=== PATIENT | female | born 1970 | race Caucasian/White ===

== ENCOUNTER 2016-05-11 11:05 | Day surgery (SDC) | payer BC ==
[2016-05-10 11:13] LABS: HEMATOCRIT 38.6 % (36.0-48.0); HEMOGLOBIN 12.1 g/dL (12.0-16.0)
[2016-05-10 11:28] LABS: A/G RATIO 1.1 (0.7-1.9); ALBUMIN 3.8 G/DL (3.5-5.0); ALKALINE PHOSPHATASE 59 U/L (45-117); BUN (BLOOD UREA NITROGEN) 14 MG/DL (6-23); CALCIUM, SERUM 8.9 MG/DL (8.5-10.4); CHLORIDE, SERUM 107 MMOL/L (96-112); CO2 (CARBON DIOXIDE) 27 MMOL/L (24-34); CREATININE 0.76 MG/DL (0.55-1.02); GFR AFRICAN AMERICAN 109 ML/MIN (>=60); GFR NON AFRICAN AMERICAN 94 ML/MIN (>=60); GLOBULIN 3.4 G/DL (2.5-4.1); POTASSIUM, SERUM 4.2 MMOL/L (3.5-5.3); SGOT(AST) 19 U/L (5-40); SGPT(ALT) 29 U/L (5-65); SODIUM, SERUM 142 MMOL/L (135-148); TOTAL BILIRUBIN 0.4 MG/DL (0-1.2); TOTAL PROTEIN 7.2 G/DL (6.0-8.5)
[2016-05-10 11:31] LABS: GLUCOSE, SERUM 62 MG/DL (60-99)
--- NOTE | ~2016-05-11 | OP ---
Record Of Operation [facility] [address] [place]. [address] NAME: MEG ROBERTO : 70 STATUS : REG [facility] [place] PAT#: [id number] AGE: 46 ADM/REG DATE : 05/11/16 MR#: [id number] REPORT SERV DATE: 05/11/16 DICTATED BY: VINCENT PIEDRA DATE: 05/11/16 REPORT STATUS : Draft TRANSCRIBED BY: MODL DATE: 05/11/16 DATE OF PROCEDURE: 05/11/2016 PREOPERATIVE DIAGNOSES: 1. Incarcerated supraumbilical incisional hernia. 2. Hyperlipidemia. POSTOPERATIVE DIAGNOSES: 1. Incarcerated supraumbilical incisional hernia. 2. Hyperlipidemia. PROCEDURE: Robotic incarcerated supraumbilical incisional hernia repair with mesh (FREYA). ANESTHESIA: General. SURGEON: Vincent Piedra M.D. SENIOR CHEMICAL ENGINEER: Dmitriy. COMPLICATIONS: None. DRAINS: None. ESTIMATED BLOOD LOSS: 20 mL. FINDINGS: The patient noted to have a supraumbilical hernia, with a large amount of incarcerated preperitoneal fat, with a 15 mm circular defect above the umbilicus most likely from a previous trocar site. OPERATIVE TECHNIQUE: The patient was brought to the operating room and placed on the table in supine position. She had preoperative IV antibiotics. She had sequential hose in place. She voided prior to the procedure. She underwent general endotracheal anesthesia, and was prepped and draped in sterile fashion, and a time-out was completed. Local anesthesia was instilled through the right subcostal space in the midclavicular line. A 15 blade knife was used to make an incision and the Veress needle was inserted, and water drop test was safely performed. A 15 mm of pneumoperitoneum was obtained. An 8 mm robotic trocar was inserted followed by the laparoscope. There was no evidence of Veress or trocar injury. The patient had an 8 mm midclavicular left lower quadrant trocar placed under direct visualization, as well as a five right lateral mid and left upper quadrant 12 mm trocar. They were all put under direct visualization. The patient was then positioned with hyperextension to elongate the abdomen. She was placed to the right side of her abdomen. At this point, the patient's cart was brought to the bedside and trocars were docked, the camera was inserted, and the patient was noted to have of the hernia with a large amount of incarcerated preperitoneal fat. The decision was made to proceed robotically, the #1 right arm was used for the scissor and a bipolar grasper was used in the left hand. A peritoneal flap was taken down from the left midclavicular line to the right midclavicular line, around the defect which Record Of Operation [address] [place]. [address] NAME: MEG ROBERTO : 70 STATUS : REG [facility] [place] PAT#: [id number] AGE: 46 ADM/REG DATE : 05/11/16 MR#: [id number] REPORT SERV DATE: 05/11/16 DICTATED BY: VINCENT PIEDRA DATE: 05/11/16 REPORT STATUS : Draft TRANSCRIBED BY: BENIGNO DATE: 05/11/16 was left in situ. The entire incarcerated hernia contents were then reduced en mass along with the hernia sac. The defect was then closed with the pneumoperitoneum reduced to 8 mm with a 1-0 V-Loc suture in running fashion that was run back upon itself for approximately 1 cm cephalad and caudal to the defect, it was closed in a longitudinal fashion. At this point, the measurements were obtained, and a piece of Prolene mesh was cut, 8 mm in length, and 5 cm and width, it was placed in the preperitoneal space, and secured circumferentially to the abdominal wall with 2-0 V-Loc suture. The peritoneum was then re-peritonealized without tension with a 3-0 V-Loc suture. At this point, there was no evidence of any other hernias or abnormalities. The patient had the 12 mm trocar sites closed with the suture passer under direct laparoscopic visualization, after the robotic patient cart was docked and instruments were removed. At this point, there was no evidence of other abnormalities. The skin edges were reapproximated using interrupted subcuticular Monocryl sutures. Dermabond was applied. She was extubated and taken to the recovery room in stable condition. All sponge and needle counts reported correct. ANETA/BENIGNO Vincent Piedra M.D. / [id number] CC: Nel Jackson M.D.
[~2016-05-11 11:05] MED LIST: ADVIL PO; CALTRA600D PO; ZOL100 PO
== END 2016-05-11 18:02 | disposition home or self-care (01) ==
LOC: SDC 11:05
PROVIDERS: Surgery
PROC: 0WUF4JZ Supplement Abdominal Wall with Synthetic Substitute, Percutaneous Endoscopic Approach (ICD-10-PCS; principal; 2016-05-11 12:00)
DX: K43.2 Incisional hernia without obstruction or gangrene (principal); E78.5 Hyperlipidemia, unspecified; Z90.710 Acquired absence of both cervix and uterus; F32.9 Major depressive disorder, single episode, unspecified; E66.9 Obesity, unspecified; Z68.27 Body mass index [BMI] 27.0-27.9, adult; Z87.891 Personal history of nicotine dependence; E78.00 Pure hypercholesterolemia, unspecified; Z98.51 Tubal ligation status; Z79.899 Other long term (current) drug therapy
CPT/HCPCS: 80053; 85014; 85018; 87641; A9270-GY; C1781; J0461; J1885; J2250; J2270; J2405; J2710; J3010; J3370